=== PATIENT | male | born 1980 | race Caucasian/White ===

== ENCOUNTER 2017-11-21 15:16 | Inpatient (IN) | payer MEDICAID, SELFPAY ==
--- NOTE | 2017-11-21 15:56 | PCM.HP.STD ---
Problem List (1) Opiate withdrawal Status: Acute (2) Hepatitis B Status: Chronic (3) Hepatitis C Status: Chronic History of Present Illness Date of Admission: 11/21/17 Chief Complaint: Opiate withdrawal The patient is a 37 year old M who presents through [facility] for opioid withdrawal. Patient states he has used 0.5-1 g of IV heroin for the past 15 years. He states sometimes the heroin is also mixed with cocaine. He denies other drug use. Denies tobacco, alcohol use. States he has occasionally took a Xanax in the past which was not prescribed to him but not recently. Patient last used heroin the last evening around 10 PM. He recently completed [facility] [employer] program in [facility] last month. He states he returned home where his roommate was continuing to use IV heroin and he relapsed. He states his roommate is now in [facility] and also is finding a new place to live. Patient has been receiving Suboxone from his primary care physician. He states his primary care physician is not aware he is continuing to use IV heroin [place] and patient has not been required to provide urine screen. Patient states he has attended outpatient counseling for the past 2 years and plans to continue at discharge. Patient states he has had an approximate 38 pound weight loss in 6 months. His other past medical history includes hepatitis B and C. His current symptoms include nasal congestion, anxiety, tremors, muscle aching, diaphoresis, abdominal cramping, clammy, nausea. Denies history of seizure during withdrawal. Past Medical History Past Medical History (Chronic Problems): Chronic Problems Hepatitis B (Chronic) Hepatitis C (Chronic) Surgical History: no surgical history Lives: Roommate Smoking Status: Never smoker Alcohol: None Drugs: Heroin - *Family History Maternal History Items: Hypertension Paternal History Items: High Cholesterol Review of Systems Constitutional: Reports: Chills, Fever HEENT: Reports: Nasal Congestion. Denies: Head Aches, Sinus Drainage Cardiovascular: Denies: Chest Pain, Palpitations Respiratory: Denies: Cough, Shortness of breath at rest, Sputum production Gastrointestinal: Reports: Nausea, - - Abdominal cramping. Denies: Constipation, Diarrhea Genitourinary: Denies: Dysuria Musculoskeletal: Reports: - - Generalized muscle/joint aches Skin: Denies: Rash, Wounds Neurological: Denies: Numbness, Tingling, Focal weakness Psychiatric: Reports: Anxiety Hematologic/ Lymphatic: Denies: Easy Bruising, Easy Bleeding VTE Information - Inpt Only VTE Present on Admission: No VTE Mechan Device Prophylaxis: None VTE Pharm Prophylaxis ordered?: No Reason prophylaxis not ordered:: Treatment Not Indicated Patient Problems: Active and Suspected Problems Opiate withdrawal (Acute) - Physical Exam General: Alert, Oriented x3, Cooperative Neck: Supple, No JVD, Negative Carotid Bruits Lungs: Clear to auscultation, Normal air movement Cardiovascular: Regular rate, Regular Rhythm, Normal S1, Normal S2, No murmurs Abdomen: Bowel Sounds Present, Soft, Non Tender, Non-Distended Extremities: No clubbing, No cyanosis, No edema, Capillary Refill Less than 3 Seconds Skin: No rashes, No breakdown Musculoskeletal: No Tenderness to Palpation of Joints or Extremities Neurological: Cranial nerves II-XII grossly intact, Neuro grossly intact Psych/Mental Status: Normal Affect, Appropriate Assessment/Plan Active and Suspected Problems Opiate withdrawal (Acute) 1. Acute opioid withdrawal/opioid abuse-medical stabilization per protocol. Patient last used heroin last evening around 10 PM. Currently complains of nasal drainage, anxiety, diaphoresis, muscle aches. States he had significant restless legs during recent [facility] stay. 2. History of hepatitis B and C DVT prophylaxis-not indicated. This patient was seen by YOANA Jessica under the supervision of Dr. Perry.
[2017-11-21 16:12] VITALS: BMI 23.0
[2017-11-21 16:14] VITALS: BP 118/71; PULSE 79; RESP 16; TEMP 37.1; O2SAT 100
[2017-11-21 16:18] VITALS: BMI 23.0
[2017-11-21 17:12] LABS: Hemoglobin 14.4 g/dl (13.0-16.5); Mean Corp Hgb Conc 34.3 g/gl (32-36); Mean Corpuscular Hgb 29.1 pg (27.0-32.0); Mean Corpuscular Volume 84.8 fL (80-94); Mean Platelet Vol. 10.4 fl (6.2-12.0); Platelet Count 220 K/mm3 (150-450); RBC Distribution Width CV 12.1 % (11.6-14.6); RBC Distribution Width SD 36.7 fl (35.1-43.9); Red Blood Count 4.95 M/mm3 (4.6-6.2); White Blood Count 5.8 K/mm3 (4.4-11.0)
[2017-11-21 17:16] LABS: Scan Indicated on CBC? Y/N NO
[2017-11-21 17:35] LABS: Anion Gap 9 (5-15); BUN 9 mg/dL (7-18); BUN/Creat Ratio 10.9 RATIO (10-20); Calcium,Total 9.3 mg/dL (8.5-10.1); Chloride 100 mmol/L (98-107); Creatinine, Serum 0.83 mg/dL (0.70-1.30); EST Glomerular Filtration Rate 111 mL/min (>60); Est Glom Filt Rate - Afr Amer 134 mL/min (>60); Estimated Creatinine Clearance 125.56 ml/min; Glucose 71 mg/dL (74-106); Sodium Level 139 mmol/L (136-145)
[2017-11-21] MEDS: Buprenorphine HCl 2 MG TAB.SUBL 4 MG SL (17:41)
[2017-11-21] MEDS: chlordiazePOXIDE 25 MG Capsule PO (17:52)
[2017-11-21 17:57] VITALS: BP 114/73; PULSE 87; RESP 18; TEMP 36.7
[2017-11-21 18:15] LABS: Amphetamine Urine VISTA NEGATIVE (<1000 ng/mL); Barbiturate Urine VISTA NEGATIVE (< 200 ng/mL); Benzodiazepine Urine VISTA POSITIVE (< 200 ng/mL); Cocaine Urine VISTA NEGATIVE (< 300 ng/mL); Ecstacy Urine VISTA NEGATIVE (< 500 ng/mL); Methadone Urine VISTA NEGATIVE (< 300 ng/mL); PCP Urine VISTA NEGATIVE (< 25 ng/mL); THC Urine VISTA NEGATIVE (< 50 ng/mL); Vista UDS pH Range 6
[2017-11-21] MEDS: QUEtiapine 25 MG Tablet PO (22:27)
[2017-11-21] MEDS: Methocarbamol 750 MG Tablet PO (22:27)
[2017-11-21] MEDS: Dicyclomine 10 MG Capsule 20 MG PO (22:28)
[2017-11-21] MEDS: Pramipexole Di-HCl 0.25 MG Tablet PO (22:28)
[2017-11-21 22:30] VITALS: BP 120/71; PULSE 83; RESP 16; TEMP 36.4
[2017-11-21] MEDS: cloNIDine HCl 0.1 MG Tablet PO (22:33)
[2017-11-22] MEDS: Buprenorphine HCl 2 MG TAB.SUBL 4 MG SL ×2 (00:32→08:42)
[2017-11-22] MEDS: chlordiazePOXIDE 25 MG Capsule PO ×2 (00:34→08:42)
[2017-11-22] MEDS: traZODone 50 MG Tablet PO (02:24)
[2017-11-22 02:29] VITALS: BP 132/81; PULSE 85; RESP 20; TEMP 36.3
[2017-11-22] MEDS: Methocarbamol 750 MG Tablet PO (04:40)
[2017-11-22] MEDS: Dicyclomine 10 MG Capsule 20 MG PO (04:40)
[2017-11-22 08:41] VITALS: BP 145/69; PULSE 72; RESP 18; TEMP 36.8
--- NOTE | 2017-11-22 09:34 | PCM.PROGNOTE ---
<Vi Benavides - Last Filed: 11/22/17 09:41> Subjective: Patient seen and examined. States he was fairly restless overnight and did not get much rest. States he did not fall asleep until about 9 AM this morning. He states his tremors, muscle aches have resolved. Denies nausea, vomiting, diarrhea. Continues to have anxiety although he states this is improved. Complains of headache. Denies other complaints. - Physical Exam General: Alert, Oriented x3, Cooperative, No apparent distress HEENT: Atraumatic, PERRLA, EOMI, Normocephalic Neck: Supple, No JVD, Negative Carotid Bruits Lungs: Clear to auscultation, Normal air movement Cardiovascular: Regular rate, Regular Rhythm, Normal S1, Normal S2, No murmurs Abdomen: Bowel Sounds Present, Soft, Non Tender Extremities: No clubbing, No cyanosis, No edema, Capillary Refill Less than 3 Seconds Skin: No rashes, No breakdown Musculoskeletal: No Tenderness to Palpation of Joints or Extremities Neurological: Cranial nerves II-XII grossly intact, Neuro grossly intact Psych/Mental Status: Normal Affect, Appropriate Vital Signs Temp Pulse Resp BP Pulse Ox 98.3 F 72 18 145/69 H 100 11/22/17 08:41 11/22/17 08:41 11/22/17 08:41 11/22/17 08:41 11/21/17 16:14 Oxygen Delivery Method Room Air Weight: 72.847 kg Body Mass Index (BMI) 23.0 Intake and Output for Last 24 Hours 11/20/17 11/21/17 11/22/17 23:59 23:59 23:59 Intake Total 480 / 480 Balance 480 / 480 Laboratory Tests Past 24 Hrs 11/21/17 11/21/17 11/21/17 16:20 16:54 16:54 WBC 5.8 RBC 4.95 Hgb 14.4 Hct 42.0 MCV 84.8 MCH 29.1 MCHC 34.3 RDW 12.1 RDW Differential 36.7 Plt Count 220 MPV 10.4 Sodium 139 Potassium 4.0 Chloride 100 Carbon Dioxide 30.0 Anion Gap 9 BUN 9 Creatinine 0.83 Estim Creat Clear Calc 125.56 Est GFR (MDRD) Af Amer 134 Est GFR (MDRD) Non-Af 111 BUN/Creatinine Ratio 10.9 Glucose 71 L Calcium 9.3 Urine Opiates Screen POSITIVE H Urine Methadone Screen NEGATIVE Ur Barbiturates Screen NEGATIVE Ur Phencyclidine Scrn NEGATIVE Ur Amphetamines Screen NEGATIVE U Methamphetamin-MDMA NEGATIVE U Benzodiazepines Scrn POSITIVE H Urine Cocaine Screen NEGATIVE U Cannabinoids Screen NEGATIVE Ur Drug Screen Comment Assessment/Plan Patient is a 37-year-old male admitted 11/21/17 due to opiate withdrawal. He has a past medical history of hepatitis B and C, chronic IV heroin use. 1. Acute opioid withdrawal/opioid abuse-medical stabilization per protocol. Patient last used heroin 11/20/17 around 10 PM. Patient states withdrawal symptoms are improving. Complains of headache. Tylenol added as needed for headache. Patient plans to continue Suboxone as outpatient and outpatient counseling at discharge. Urine drug screen positive for opiates and benzodiazepines. 2. History of hepatitis B and C DVT prophylaxis-not indicated. This patient was seen by YOANA Jessica under the supervision of Dr. Garcia. <Jeannie Garcia E - Last Filed: 11/22/17 13:16> - Physical Exam Vital Signs Temp Pulse Resp BP Pulse Ox 98.3 F 72 18 145/69 H 100 11/22/17 08:41 11/22/17 08:41 11/22/17 08:41 11/22/17 08:41 11/21/17 16:14 Oxygen Delivery Method Room Air Weight: 160 lb 9.6 oz Body Mass Index (BMI) 23.0 Intake and Output for Last 24 Hours 11/20/17 11/21/17 11/22/17 23:59 23:59 23:59 Intake Total 480 / 480 Balance 480 / 480 Laboratory Tests Past 24 Hrs 11/21/17 11/21/17 11/21/17 16:20 16:54 16:54 WBC 5.8 RBC 4.95 Hgb 14.4 Hct 42.0 MCV 84.8 MCH 29.1 MCHC 34.3 RDW 12.1 RDW Differential 36.7 Plt Count 220 MPV 10.4 Sodium 139 Potassium 4.0 Chloride 100 Carbon Dioxide 30.0 Anion Gap 9 BUN 9 Creatinine 0.83 Estim Creat Clear Calc 125.56 Est GFR (MDRD) Af Amer 134 Est GFR (MDRD) Non-Af 111 BUN/Creatinine Ratio 10.9 Glucose 71 L Calcium 9.3 Urine Opiates Screen POSITIVE H Urine Methadone Screen NEGATIVE Ur Barbiturates Screen NEGATIVE Ur Phencyclidine Scrn NEGATIVE Ur Amphetamines Screen NEGATIVE U Methamphetamin-MDMA NEGATIVE U Benzodiazepines Scrn POSITIVE H Urine Cocaine Screen NEGATIVE U Cannabinoids Screen NEGATIVE Ur Drug Screen Comment Assessment/Plan hospitalist note: I am seeing this patient in conjunction with Vi Benavides. I went to see the patient and patient was already left the hospital. He was admitted for opiate withdrawal for medical stabilization through [facility] program. I agree with above progress note and treatment plan. Patient was not seen or examined on the day when he left AGAINST MEDICAL ADVICE.
--- NOTE | 2017-11-22 10:54 | NURSING ---
I was charting at back computer when pt apporached desk and asked if he was allowed to walk around in the halls on the unit. I states yes as long as you stay on the floor. Pt stated that was fine. A couple minutes past and pt did not return to his room so i head to nurses station to see if i could check on pt. On my way to nurses station i past charge nurse who told me that pt was at vending machine and when she turned her back took elevator off of the floor. x2 nurse aides went to check to see if they could find patient but was not able. Managers and [employer] notified that we are unable to locate pt. notifed that pt left AMA
--- NOTE | 2017-11-22 11:13 | PCM.DC.SUM ---
<Vi Benavides - Last Filed: 11/22/17 11:17> Discharge Date and Diagnosis Date of Admission: 11/21/17 Date of Discharge: 11/22/17 - Primary Discharge Diagnosis 1. Acute opioid withdrawal/opioid abuse-patient signed out AMA - Secondary Discharge Diagnosis Chronic Problems Hepatitis B (Chronic) Hepatitis C (Chronic) Hospital Course and Treatment Operations: None Procedures: None Summary of Care Provided: Patient is a 37-year-old male admitted 11/21/17 due to opiate withdrawal. He has a past medical history of hepatitis B and C, chronic IV heroin use. Patient admitted through [facility] for opiate withdrawal. Patient admits to using 1 g of IV heroin daily for the past 15 years. He was recently in [facility] program in [facility] in early October. Spoke with patient this morning and he was doing well. Denied complaints other than headache. Nursing staff notified that patient was missing from floor. Patient left AGAINST MEDICAL ADVICE without completing medical stabilization per protocol. Patient's urine was positive for opiates and benzodiazepines on admission. He has a past medical history of hepatitis B and C. This patient was seen by YOANA Jessica under the supervision of Dr. Garcia. Home Medications: Medications to take at Discharge Buprenorphine HCl/Naloxone HCl [Buprenorphin-Naloxon 8-2 mg Sl] 2 each SL DAILY 11/21/17 Disposition: Against Medical Advice Minutes spent on discharge:: 30 Patient Condition:: Fair Meaningful Use Info Meaningful Use Diagnoses (Choose all that apply): None applicable <Jeannie Garcia - Last Filed: 11/22/17 13:18> Discharge Date and Diagnosis - Secondary Discharge Diagnosis Chronic Problems Hepatitis B (Chronic) Hepatitis C (Chronic) Hospital Course and Treatment Summary of Care Provided: Hospitalist note: Discharge summary above reviewed and I agree with above note. Patient was admitted for opioid withdrawal for medical stabilization. He was started on Trot protocol with tapering course of Subutex. His routine blood work was unremarkable. His urine drug screen was positive for opioids and benzodiazepines. His vital signs are stable. Reportedly, patient did well initially but all of a sudden, patient left AGAINST MEDICAL ADVICE. I went to see the patient in his room and he was not there and I was informed by the nursing staff that patient left the floor. I did not see or examine the patient on the day when he left AGAINST MEDICAL ADVICE. . Minutes spent on discharge:: 24 Code Visit Inpatient E&M: [id number] Disch Hosp
--- NOTE | 2017-11-22 11:17 | DS.PCM_ITS ---
<Vi Benavides - Last Filed: 11/22/17 11:17> Discharge Date and Diagnosis Date of Admission: 11/21/17 Date of Discharge: 11/22/17 - Primary Discharge Diagnosis 1. Acute opioid withdrawal/opioid abuse-patient signed out AMA - Secondary Discharge Diagnosis Chronic Problems Hepatitis B (Chronic) Hepatitis C (Chronic) Hospital Course and Treatment Operations: None Procedures: None Summary of Care Provided: Patient is a 37-year-old male admitted 11/21/17 due to opiate withdrawal. He has a past medical history of hepatitis B and C, chronic IV heroin use. Patient admitted through [facility] for opiate withdrawal. Patient admits to using 1 g of IV heroin daily for the past 15 years. He was recently in [facility] program in [facility] in early October. Spoke with patient this morning and he was doing well. Denied complaints other than headache. Nursing staff notified that patient was missing from floor. Patient left AGAINST MEDICAL ADVICE without completing medical stabilization per protocol. Patient' s urine was positive for opiates and benzodiazepines on admission. He has a past medical history of hepatitis B and C. This patient was seen by YOANA Jessica under the supervision of Dr. Garcia. Home Medications: Medications to take at Discharge Buprenorphine HCl/Naloxone HCl [Buprenorphin-Naloxon 8-2 mg Sl] 2 each SL DAILY 11/21/17 Disposition: Against Medical Advice Minutes spent on discharge:: 30 Patient Condition:: Fair Meaningful Use Info Meaningful Use Diagnoses (Choose all that apply): None applicable <Jeannie Garcia - Last Filed: 11/22/17 13:18> Discharge Date and Diagnosis - Secondary Discharge Diagnosis Chronic Problems Hepatitis B (Chronic) Hepatitis C (Chronic) Hospital Course and Treatment Summary of Care Provided: Hospitalist note: Discharge summary above reviewed and I agree with above note. Patient was admitted for opioid withdrawal for medical stabilization. He was started on [employer] protocol with tapering course of Subutex. His routine blood work was unremarkable. His urine drug screen was positive for opioids and benzodiazepines. His vital signs are stable. Reportedly, patient did well initially but all of a sudden, patient left AGAINST MEDICAL ADVICE. I went to see the patient in his room and he was not there and I was informed by the nursing staff that patient left the floor. I did not see or examine the patient on the day when he left AGAINST MEDICAL ADVICE. . Minutes spent on discharge:: 24 Code Visit Inpatient E&M: [id number] Disch Hosp
--- NOTE | 2017-11-22 11:36 | NURSING ---
This RN saw patient walk by nurses' station and out toward elevators. This RN went to go make sure patient was not planning to go on elevators. Patient took a left and was at the vending machines. This RN walked back to nurses' station and 2 aides state they saw patient get on elevator. This RN immediately went to elevator to go down after patient, and watched the elevator, that patient was in, go down to ground floor. This RN walked down to entrance and did not see patient. Asked 3 pink ladies and school commissioner tow motor driver if they saw a patient that fit the description- they all state that they did not. This RN walked down to surgery waiting area and again asked staff- all denied seeing patient. Emily, RN, Joselyn, online advertising manager, Maryann with [employer] notified. Aides went to go search for patient and Maryann went to go to parking lot near where patient parked- all staff unable to locate patient. Dr. Garcia notified and determined that patient left AMA. Patient did not have an IV in place at time of leaving unit.
== END 2017-11-22 10:49 | disposition left against medical advice (07) | DRG 433 ==
PROVIDERS: Nurse Practitioner Family; Admitting Provider Internal Medicine; Visit Provider Hospitalist
DX: F11.23 Opioid dependence with withdrawal (principal); B18.1 Chronic viral hepatitis B without delta-agent; B18.2 Chronic viral hepatitis C
CPT/HCPCS: 80048; 80307; 85027